=== PATIENT | male | born 1975 | race Caucasian/White ===

== ENCOUNTER 2017-09-16 12:33 | Emergency (ER) | payer SELFPAY ==
[2017-09-16] MEDS ORDERED: PREDNISONE 20 MG TABLET PO ONE (13:39)
[2017-09-16] MEDS ORDERED: IPRATROPIUM/ALBUTEROL 0.5-2.5 MG/3 ML AMPUL NEB ONE (13:39)
[2017-09-16] MEDS ORDERED: MUPIROCIN CALCIUM 2% CREAM 15 GM TP ONE (14:06)
[2017-09-16] MEDS ORDERED: ALBUTEROL SULFATE HFA (90 MCG/PUFF) 8 GM MDI (1 MDI/ER DISP) IH ONE (14:06)
--- NOTE | 2017-09-16 14:29 | ER Document Report ---
ED General - General Chief Complaint: Breathing Difficulty Stated Complaint: DIFFICULTY BREATHING Time Seen by Provider: 09/16/17 13:32 Mode of Arrival: Ambulatory Information source: Patient TRAVEL OUTSIDE OF THE [place] IN LAST 30 DAYS: No - HPI Patient complains to provider of: wheezing-ran out of albuterol inhaler and connot afford a new one Onset: Other - 2 days ago Onset/Duration: Constant Quality of pain: No pain Severity: Moderate Associated symptoms: None Exacerbated by: Coughing Relieved by: Denies Similar symptoms previously: Yes Recently seen / treated by doctor: No - Related Data Allergies/Adverse Reactions: banana Allergy (Verified 09/16/17 12:34) Penicillins Allergy (Verified 09/16/17 12:34) Past Medical History - General Information source: Patient - Social History Smoking Status: Former Smoker Chew tobacco use (# tins/day): No Frequency of alcohol use: Rare Drug Abuse: None Lives with: Family Family History: Reviewed & Not Pertinent Patient has suicidal ideation: No Patient has homicidal ideation: No - Past Medical History Cardiac Medical History: Reports: None Pulmonary Medical History: Reports: Hx Asthma - prior hospitalizations as a child. None recently EENT Medical History: Reports: None Neurological Medical History: Reports: None Endocrine Medical History: Reports: None Renal/ Medical History: Reports: None. Denies: Hx Peritoneal Dialysis Malignancy Medical History: Reports None GI Medical History: Reports: None Musculoskeltal Medical History: Reports None Skin Medical History: Reports Hx MRSA Psychiatric Medical History: Reports: None Infectious Medical History: Reports: Hx MRSA Past Surgical History: Reports: None Review of Systems - Review of Systems Constitutional: No symptoms reported EENT: No symptoms reported Cardiovascular: No symptoms reported Respiratory: See HPI, Cough, Wheezing. denies: Sputum Gastrointestinal: No symptoms reported Genitourinary: No symptoms reported Male Genitourinary: No symptoms reported Musculoskeletal: No symptoms reported Skin: Rash - chin area-h/o mrsa Hematologic/Lymphatic: No symptoms reported Neurological/Psychological: No symptoms reported Physical Exam - Vital signs Vitals: Temp Pulse Resp BP Pulse Ox 98.4 F 85 24 H 109/61 98 09/16/17 12:39 09/16/17 12:39 09/16/17 12:39 09/16/17 12:39 09/16/17 12:39 - Notes Notes: PHYSICAL EXAMINATION: GENERAL: Well-appearing, well-nourished and in no acute distress. HEAD: Atraumatic, normocephalic. EYES: Pupils equal round and reactive to light, extraocular movements intact, sclera anicteric, conjunctiva are normal. ENT: Nares patent, oropharynx clear without exudates. Moist mucous membranes. NECK: Normal range of motion, supple without lymphadenopathy LUNGS: Lateral inspiratory and expiratory wheezes. No respiratory distress. No accessory muscle use. HEART: Regular rate and rhythm without murmurs ABDOMEN: Soft, nontender, nondistended abdomen. No guarding, no rebound. No masses appreciated. Musculoskeletal: Normal range of motion, no pitting or edema. No cyanosis. NEUROLOGICAL: Cranial nerves grossly intact. Normal speech, normal gait. Normal sensory, motor exams PSYCH: Normal mood, normal affect. SKIN: Macular erythematous warm rash to chin area-no abscess formation. No vesicular formation. Course - Re-evaluation Re-evalutation: 09/16/17 14:25 Patient improved with neb inhalation. He did receive albuterol inhaler in the emergency department as well as mupirocin for his rash on his face. She states she will get PT today or tomorrow be able to buy his prednisone. He is to return to the emergency department if he has worsening symptoms. - Vital Signs Vital signs: Temp Pulse Resp BP Pulse Ox 98.4 F 85 20 109/61 98 09/16/17 12:39 09/16/17 12:39 09/16/17 13:20 09/16/17 12:39 09/16/17 12:39 Discharge - Discharge Clinical Impression: Cellulitis of face, Asthma exacerbation Condition: Stable Disposition: HOME, SELF-CARE Instructions: Asthma ([facility]) Prescriptions: Albuterol Sulfate [Proair HFA Inhalation Aerosol 8.5 gm MDI] 2 puff IH Q4H PRN # 1 mdi PRN Reason: Mupirocin Calcium [Bactroban] 15 gm TP BID 7 Days #7 cream..g. Prednisone [Deltasone 20 mg Tablet] 60 mg PO DAILY 5 Days #3 tablet
[2017-09-16 15:24] VITALS: BP 110/60
== END 2017-09-16 15:07 | disposition home or self-care (01) ==
LOC: ER 12:33
DX: J45.901 Unspecified asthma with (acute) exacerbation (principal); T48.6X6A Underdosing of antiasthmatics, initial encounter; Z91.120 Patient's intentional underdosing of medication regimen due to financial hardship; Z91.14 Patient's other noncompliance with medication regimen; L03.211 Cellulitis of face; R05 Cough; Z88.0 Allergy status to penicillin; Z91.018 Allergy to other foods; Z87.891 Personal history of nicotine dependence; Z86.14 Personal history of Methicillin resistant Staphylococcus aureus infection
CPT/HCPCS: 94640; 99284; J3490 ×2; J7512; J7620